=== PATIENT | male | born 1970 | race Caucasian/White ===

== ENCOUNTER 2018-04-04 11:11 | Day surgery (SDC) | payer BC, OTHER ==
[2018-03-29 10:49] LABS: HEMATOCRIT 41.6 % (37.9-51.0); HEMOGLOBIN 14.8 g/dL (13.5-17.0); MEAN CORPUSCULAR HEMOGLOBIN 32.8 pg (27.0-33.4); MEAN CORPUSCULAR HGB CONC 35.6 g/dL (32.0-36.0); MEAN CORPUSCULAR VOLUME 92 fl (80-97); PLATELET COUNT 223 10^3/uL (150-450); RED BLOOD COUNT 4.51 10^6/uL (4.35-5.55); RED CELL DISTRIBUTION WIDTH 12.9 % (11.5-14.0); WHITE BLOOD COUNT 7.5 10^3/uL (4.0-10.5)
[2018-03-29 11:16] LABS: ANION GAP 10 (5-19); BLOOD UREA NITROGEN 20 mg/dL (7-20); CALCIUM 9.4 mg/dL (8.4-10.2); CARBON DIOXIDE 26 mmol/L (22-30); CHLORIDE 103 mmol/L (98-107); GLUCOSE 238 mg/dL (75-110); POTASSIUM 4.3 mmol/L (3.6-5.0); SODIUM 138.9 mmol/L (137-145)
--- NOTE | 2018-03-29 13:19 | EKG REPORT ---
SEVERITY:- BORDERLINE ECG - SINUS RHYTHM BORDERLINE T WAVE ABNORMALITIES : Confirmed by: Errol Santillan MD 29-Mar-2018 13:19:17
[~2018-04-04 11:11] MED LIST: BUPIVACAINE HCL 0.25 % INJ/PF (2.5 MG/1 ML) 30 ML VIAL ONE; CEFAZOLIN 2 GM/D5W RTU 2 GM/50 ML RTUPB IV PRN; DEXAMETHASONE SOD PHOSPHATE INJ 4 MG/1 ML VIAL ONE; GLYCOPYRROLATE 1 MG/5 ML SYRINGE ONE; KETOROLAC TROMETHAMINE 60 MG/2 ML SDV ONE; LACTATED RINGERS 1000 ML IV PRN; LIDOCAINE 0.5% INJ-PF (5 MG/ML) 50 ML SDV SUBCUT PRN; LIDOCAINE 2% INJ-PF (20 MG/ML) 2 ML AMPUL ONE; NEOSTIGMINE METHYLSULFATE 10 MG/10 ML VIAL ONE; ONDANSETRON HCL INJ/PF 4 MG/2 ML SDV ONE; ROCURONIUM BROMIDE INJ 50 MG/5 ML VIAL IV ONE; SUCCINYLCHOLINE CHLORIDE INJ 200 MG/10 ML VIAL ONE
[2018-04-04] MEDS ORDERED: FENTANYL CITRATE INJ/PF 250 MCG/5 ML AMPULE ONE (12:38)
[2018-04-04] MEDS ORDERED: MIDAZOLAM 2 MG/2 ML INJ ONE (12:38)
[2018-04-04] MEDS ORDERED: ACETAMINOPHEN 1,000 MG/100 ML RTUPB IV ONE (12:39)
[2018-04-04] MEDS ORDERED: PROPOFOL INJ 200 MG/20 ML VIAL IV ONE (12:39)
[2018-04-04] MEDS ORDERED: DEXMEDETOMIDINE INJ 80 MCG/20 ML VIAL IV ONE (12:39)
[2018-04-04 13:00] LABS: POTASSIUM 4.1 mmol/L (3.6-5.0)
--- NOTE | 2018-04-04 13:00 | Operative Report ---
Nonrecallable Operative Report DATE OF SURGERY: 04/04/18 PREOPERATIVE DIAGNOSIS: Symptomatic umbilical hernia POSTOPERATIVE DIAGNOSIS: Symptomatic umbilical hernia OPERATION: Robot-assisted laparoscopic umbilical hernia repair with mesh. SURGEON: CODIE TALAMANTES 1ST ELECTRON BEAM WELDER: TAMRA REIS ANESTHESIA: GA TISSUE REMOVED OR ALTERED: None COMPLICATIONS: None apparent ESTIMATED BLOOD LOSS: Minimal PROCEDURE: Drains/implants: [address] Procedure in detail: After informed consent was obtained, the patient was laid in the supine position. The area of the abdomen was prepped and draped in a normal sterile fashion. A left upper quadrant incision was created with a 15 blade scalpel. A 5 mm trocar was inserted into the abdominal cavity using the 5 mm camera and the Optiview technique. Once this was completed, gas insufflation was attached and pneumoperitoneum was achieved. Next a 5 mm left lower quadrant robotic trocar was placed under direct laparoscopic visualization. A 12 mm trocar was placed in the left lateral abdomen in similar fashion. 5 mm trocar was removed and replaced with an 8 mm robotic trocar. The robot was then brought over the patient and docked. I then assumed my position at the surgeon's consult. There is a large amount of preperitoneal fat surrounding the hernia defect. The peritoneal fat was cleared away from the anterior abdominal wall. The defect was measured to be approximately 3 cm in diameter. The hernia defect was then closed using number 1 V lock suture in simple running fashion. Once this was completed, an [address] hernia mesh was chosen to adequately cover the defect. This was placed into the abdominal cavity and apposed to the anterior abdominal wall using the EPS. The mesh was sutured to the anterior abdominal wall using 2-0 V lock suture in simple running fashion. Once this was complete, the abdomen was inspected. The repair appeared to be in good place. The robot was then undocked. The 8 mm trocar sites were closed using 0 Vicryl suture in simple interrupted fashion. The trochars were removed, and pneumoperitoneum was relieved. The 12 mm trocar site fascia was closed using 0 Vicryl suture in [id number] fashion. The overlying skin was closed using 4-0 Vicryl Rapide suture in subcuticular fashion. Dressings were placed, and the procedure was concluded. All sponge, instrument, and needle counts were correct 2. Condition: Stable. Tamra Reis PA-C was scrubbed and present the entirety of the procedure. She assisted with all portions of the procedure, including placement of the trochars, exchanging of the robotic instruments, docking of the robot, closure of the fascia, and closure of the skin.
[2018-04-04] MEDS ORDERED: DIPHENHYDRAMINE HCL 50 MG/ML VIAL IV PRN (14:04)
[2018-04-04] MEDS ORDERED: MEPERIDINE HCL/PF INJ 25 MG/1 ML DISP.SYRIN IV PRN (14:04)
[2018-04-04] MEDS ORDERED: FENTANYL CITRATE INJ/PF 100 MCG/2 ML AMPUL IV PRN ×3 (14:04)
[2018-04-04] MEDS ORDERED: PROMETHAZINE HCL INJ 25 MG/1 ML VIAL IV PRN ×2 (14:04)
[2018-04-04] MEDS ORDERED: HYDROMORPHONE HCL INJ/PF 2 MG/ML AMPULE ONE (14:49)
[2018-04-04] MEDS: FENTANYL CITRATE INJ/PF 100 MCG/2 ML AMPUL ONE ×2 (16:55→17:00)
[2018-04-04] MEDS ORDERED: HYDROCODONE/ACETAMINOPHEN 10-325 MG TABLET ONE (17:43)
[2018-04-04 19:33] VITALS: BP 154/96
--- NOTE | 2018-04-05 09:46 | Discharge Summary ---
Discharge Summary (SDC) - Discharge Final Diagnosis: Right lower quadrant incisional hernia Date of Surgery: 04/04/18 Discharge Date: 04/04/18 Condition: Good Forms: ASU Anesthesia D/C Instruction, Discharge POC-Surgical Service Referrals: BRYAN WHEELER MD [Primary Care Provider] - CODIE TALAMANTES MD [ACTIVE STAFF] - Discharge Diet: As Tolerated Respiratory Treatments at Home: Deep Breathing/Coughing, Incentive Spirometer Discharge Activity: No Lifting Over 10 Pounds Home Care Assistance: Provided by Family Report the Following to Your Physician Immediately: Shortness of Breath, Nausea , Increase in Pain, Fever over 101 Degrees, Unusual Bleeding, Redness, Swelling , Warmth, Drainage-Yellow, IV Site Infection Signs
--- NOTE | 2018-04-05 10:01 | Operative Report ---
Nonrecallable Operative Report DATE OF SURGERY: 04/04/18 PREOPERATIVE DIAGNOSIS: Incarcerated right lower quadrant incisional hernia POSTOPERATIVE DIAGNOSIS: Incarcerated right lower quadrant incisional hernia OPERATION: 1. Robot-assisted laparoscopic lysis of adhesions for greater than 1 hour. 2. Robot-assisted laparoscopic incisional hernia repair with mesh. SURGEON: CODIE TALAMANTES 1ST ENVIRONMENTAL REMEDIATION CONSULTANT: TAMRA REIS ANESTHESIA: GA TISSUE REMOVED OR ALTERED: None COMPLICATIONS: None apparent ESTIMATED BLOOD LOSS: Minimal PROCEDURE: Drains/implants 15 x [address] hernia mesh. Procedure in detail: After informed consent was obtained, the patient was brought into the operating room and laid in the supine position. The area of the abdomen was prepped and draped in a normal sterile fashion. A 15 blade scalpel was used to create a small epigastric incision. The 5 mm trocar and 5 mm camera were inserted into the abdomen using the Optiview technique. The 5 mm camera was inserted, and the abdomen was inspected. There was a large amount of anterior abdominal wall adhesions, both of omentum and small intestine. A suitable place was then chosen for placement of the 12 mm camera port and left lower quadrant 8 mm robotic trocar. These trochars were placed under direct laparoscopic visualization. Next, the 5 mm trocar was removed, and replaced with an 8 mm robotic trocar. The robot was then brought over the patient, and docked appropriately. I then assumed my position at the surgeon's console. Attention was then turned to lysis of adhesions. Adhesions of the omentum and small bowel to the anterior abdominal wall were lysed sharply, without electrocautery. The 7 cm hernia defect was then brought into view. There was a large amount of small intestine and omentum incarcerated within the defect. These adhesions were lysed, and the small bowel and omentum were reduced back into the abdominal cavity. This maneuver took greater than 1 hour to lyse all the adhesions. Once the defect was free, it was closed using number 1 V lock suture in simple running fashion. The defect was closed transversely. After the defect was completely closed a 20 x 15 cm ventra light hernia mesh was chosen to adequately cover the defect. The mesh was apposed to the anterior abdominal wall using the EPS. The mesh was sewn into place using 2-0 V lock suture in simple running fashion circumferentially. Once this was completed, the mesh was found to lie in good place. The robot was then undocked, and I scrubbed back into the case. The 8 mm trocar sites were closed using #1 Vicryl suture simple interrupted fashion, with the aid of the Endo Close device. Once this was completed, the trochars were removed and pneumoperitoneum was relieved. The 12 mm trocar site was closed using 0 Vicryl suture in [id number] fashion under direct vision. The overlying skin was closed using 4-0 Vicryl Rapide suture in subcuticular fashion. All sponge, instrument, and needle counts were correct 2. Condition: Stable. Tamra Reis PA-C was scrubbed and present the entirety of the procedure. She assisted with all portions of the procedure including placing of the trochars, docking of the robot, exchanging of the robotic instruments, closure of the fascia, and closure of the skin.
== END 2018-04-04 19:15 | disposition home or self-care (01) ==
LOC: OROUT 11:11
PROVIDERS: ATTEND Surgery
DX: K43.0 Incisional hernia with obstruction, without gangrene (principal); K66.0 Peritoneal adhesions (postprocedural) (postinfection); K76.0 Fatty (change of) liver, not elsewhere classified; I10 Essential (primary) hypertension; E11.9 Type 2 diabetes mellitus without complications; E66.9 Obesity, unspecified; Z87.891 Personal history of nicotine dependence; Z79.899 Other long term (current) drug therapy; Z79.84 Long term (current) use of oral hypoglycemic drugs; Z79.1 Long term (current) use of non-steroidal anti-inflammatories (NSAID); Z68.35 Body mass index [BMI] 35.0-35.9, adult
CPT/HCPCS: 49655; S2900; 36415; 752; 80048; 82947; 82962; 84132; 85027; 86850; 86900; 86901; 93005; 93010; C1781; J0131; J0330; J0690; J1100; J1170; J1885; J2250; J2405; J2704; J3010; J3490